=== PATIENT | male | born 1995 | race Caucasian/White ===

== ENCOUNTER → 2016-11-05 | Day surgery (SDC) | payer OTHER ==
[~2016-11-05] VITALS: Ht 182.9 cm; Wt 76.8 kg
[~2016-11-05] MED LIST: TYLENOL325 MG PO; ZANTAC (NON-FO150 MG PO; ZOFRAN4 MG PO
== END | disposition disaster alternative care site (69) ==
LOC: GPOC 11-02 13:00 → GEND 08:25 → GPOC 13:00
PROC: 0DB68ZX Excision of Stomach, Via Natural or Artificial Opening Endoscopic, Diagnostic (ICD-10-PCS; principal; 2016-11-05)
DX: K31.9 Disease of stomach and duodenum, unspecified (principal); K29.70 Gastritis, unspecified, without bleeding; F17.210 Nicotine dependence, cigarettes, uncomplicated; Z98.890 Other specified postprocedural states
CPT/HCPCS: J2001; J7030